=== PATIENT | female | born 1985 | race Caucasian/White ===

== ENCOUNTER 2021-12-14 15:59 | Emergency (ER) | payer OTHER ==
--- OUTSIDE RECORDS SUMMARY | 2021-12-14 16:04 | XMS REPORT | Continuity of Care Document ---
:1985 Author Organization [facility] t Address [address] [place] [address] Care Team Providers Name Role Phone Jeff Briones Christel Primary Care Physician BREEZY AUGUSTINE Attending Clinician Unavailable Breezy Augustine MD Attending Clinician GC_TRACYHASWATI_Anselmo_G Attending Clinician Unavailable GC_MARGARET_Anselmo_G Admitting Clinician Unavailable Payers Payer Name Policy Type Policy Number Effective Date Expiration Date S ource MEDICAID [place] [id number] 2021 00:00:00 [place] [id number] Problems This patient has no known problems. Allergies, Adverse Reactions, Alerts Allergy Allergy Status Severity Reaction(s) Onset Inactive Treating Comm ents Source Name Type Date Date Clinician NO KNOWN Drug Active Univers ALLERGIE Class ity of S [facility] Social History Social Habit Start Date Stop Date Quantity Comments Source Exposure to 2021-11-29 2021-12-09 Not sure [facility] SARS-CoV-2 (event) 00:00:00 11:29:00 Medica l Branch Sex Ass[birth year] [facility] 00:00:00 00:00:00 Medical Branch Smoking Status Start Date Stop Date Source Tobacco smoking consumption Univ [facility] Medical unknown Branch Medications This patient has no known medications. Vital Signs Vital Name Observation Time Observation Value Comments Source Systolic blood 2021-12-09 19:00:00 112 mm[Hg] Univer sity of pressure [facility] Diastolic blood 2021-12-09 19:00:00 81 mm[Hg] [facility] pressure [facility] Heart rate 2021-12-09 19:00:00 55 /min [facility] Respiratory rate 2021-12-09 19:00:00 14 /min [facility] Oxygen saturation in 2021-12-09 19:00:00 100 /min [facility] Arterial blood by [facility] Pulse oximetry Branch Body temperature 2021-12-09 16:30:00 37.06 Anca [facility] Body height 2021-12-09 16:30:00 170.2 cm [facility] Body weight 2021-12-09 16:30:00 79.379 kg [facility] BMI 2021-12-09 16:30:00 27.41 kg/m2 [facility] Procedures Procedure Date / Time Performing Clinician Source Performed US FIRST 2021-12-09 18:17:07 Breezy Augustine [facility] TRIMESTER LESS THAN 14 Medical B ranch WEEKS WITH TRANSVAGINAL ABORH CONFIRMATION (LAB 2021-12-09 17:19:00 Breezy Augustine [facility] ONLY) [facility] HB ABO GROUPING 2021-12-09 17:00:00 Breezy Augustine [facility] COMP. METABOLIC PANEL 2021-12-09 16:52:00 Breezy Augustine [facility] ([id number]) [facility] TOTAL BETA HCG ASSAY 2021-12-09 16:52:00 Breezy Augustine [facility] CBC WITH DIFF 2021-12-09 16:52:00 Breezy Augustine [facility] URINALYSIS 2021-12-09 16:52:00 Breezy Augustine [facility] NOTICE OF PRIVACY 2021-12-09 16:20:07 Doctor Unassigned, No [facility] PRACTICES Name Medical Branch Encounters Start End Encounter Admission Attending Care Care Encounter Source Date/Time Date/Time Type Type Clinicians Facility Department ID 2021-12-09 2021-12-09 Emergency X TARA AUGUSTINE ERT [id number] [facility] 11:30:00 14:17:00 BREEZY levine of [facility] 2021-12-09 2021-12-09 Emergency Vasut, [facility] [id number] [facility] 11:30:00 14:17:00 Breezy TOMLIN [id number] i Negro [id number] [facility] [id number] [facility] 084 Branch 2021-12-02 2021-12-02 Outpatient GC_SWHAOMC_ PRIV PRIV [id number] [facility] 00:00:00 00:00:00 Miguel [id number] [facility] 2021-12-01 2021-12-01 Outpatient GC_SWHAOMC_ PRIV PRIV [id number] [facility] 00:00:00 00:00:00 Anselmo_Cleve [id number] [facility] Results Test Description Test Time Test Comments Results Result Comments Source ABORH Confirmation (Lab Only) 2021-12-09 17:53:25 Test Item Value Reference Range Interpretation Comme nts ABO & RH (test code = 20) B Positive Pe rformed at [facility] Laboratory Services - ADC Blood [address] [place] [address]Hase Free: [phone] A No. [id number] [facility] [id number] 17:50:53 Test Item Value Reference Range Interpretation Comments BETA HCG (test See_Comment [Automated m essage] code = The system ic h [id number]) generated this result transmit nena reference range : Non- fe male and male patien ts: <5 mIU/mL. The reference range was not used to interpret this result as normal/abnormal . MARIA G (test code Gestational Age ? ? = MARIA G) ?Range (mIU/mL) 1-10 ?Weeks ?[id number] Weeks ?11118-61441283-88 Weeks ?5720-37340179-54 Weeks ?[id number] Biotin has been reported to cause a negative bias, interpret results relative to patient's use of biotin. [facility] Screen - ONCE [id number] 17:49:55 Test Item Value Reference Range Interpretation Comments ABO & RH (test code B Positive Performe d at [facility] = 20) Laboratory Serv [facility] Blood [facility]1 [address] [place] [address] Free: [phone] A No. [id number] IAT (test code = Negative Performed a t [facility] 1185) Laboratory Serv [facility] [address] [place], [place] [address]Toll Free: [phone] A No. [id number] [facility] MET[facility]OLIC PANEL ([id number])2021-12-09 17:36:25 Test Item Value Reference Range Interpretation Comments NA (test code = 135 mmol/L 135-145 5277028352) K (test code = 4.4 mmol/L 3.5-5 7920668566) CL (test code = 105 mmol/L 98-108 4638142406) CO2 TOTAL (test code = 20 mmol/L 23-31 L 4491247353) AGAP (test code = 2-16 8836610383) BUN (test code = 13 mg/dL 7-23 8281126029) GLUCOSE (test code = 86 mg/dL 70-110 2599478582) CREATININE (test code = 0.57 mg/dL 0.5-1.04 7308040836) TOTAL BILI (test code = 0.9 mg/dL 0.1-1.1 6737525505) CALCIUM (test code = 9.7 mg/dL 8.6-10.6 8327599708) T PROTEIN (test code = 7.1 g/dL 6.3-8.2 4488121159) ALBUMIN (test code = 4.3 g/dL 3.5-5 4903953598) ALK PHOS (test code = 59 U/L 34-122 8846896272) ALTv (test code = 134 U/L 5-35 H 1742-6) AST(SGOT) (test code = 98 U/L 13-40 H 8212143715) eGFR (test code = mL/min/1.73m2 9498820620) MARIA G (test code = MARIA G) Association of Glomerular Filtration Rate (GFR) and Staging of Kidney Disease* + --+ --+ ------+| GFR (mL/min/1.73 m2) ?| With Kidney Damage ?| ?Without Kidney Damage+ --------+ --------+ +| ?>90 ?| ?Stage one ?| ? Normal ?+ ---+ ---+ -------+| ?60-89 ?| ?Stage two ?| ? Decreased GFR ? + --+ --+ ------+| ?30-59 ?| ?Stage three ?| ? Stage three ? + --+ --+ ------+| ?15-29 ?| ?Stage four ? | ? Stage four ?+ ---+ ---+ -------+| ?<15 (or dialysis) ? ?| ?Stage five ? | ? Stage five ?+ ---+ ---+ -------+ *Each stage assumes the associated GFR level has been in effect for at least three months. ?Stages 1 to 5, with or without kidney disease, indicate chronic kidney disease. Notes: Determination of stages one and two (with eGFR >59mL/min/1.73 m2) requires estimation of kidney damage for at least three months as defined by structural or functional abnormalities of the kidney, manifested by either:Pathological abnormalities or Markers of kidney damage (including abnormalities in the composition of the blood or urine or abnormalities in imaging tests). Lab Interpretation Abnormal (test code = 16261-1) [facility] WITH [id number] 17:17:39 Test Item Value Reference Range Interpretation Comments WBC (test code = See_Comment [Automated 6192-2) message] The sy stem which generated this result transmitted reference range : 4.30 - 11.10 10*3/?L. The reference range was not used to interpret this result as normal/abnormal . RBC (test code = See_Comment [Automated 321-5) message] The sy stem which generated this result transmitted reference range : 3.93 - 5.25 10*6/?L. The reference range was not used to interpret this result as normal/abnormal . HGB (test code = 12.1 g/dL 11.6-15 718-7) HCT (test code = 35.6 % 35.7-45.2 L 4544-3) MCV (test code = 86.4 fL 80.6-95.5 787-2) MCH (test code = 29.4 pg 25.9-32.8 785-6) MCHC (test code = 34.0 g/dL 31.6-35.1 786-4) RDW-SD (test code = 40.3 fL 39-49.9 85526-2) RDW-CV (test code = 12.9 % 12-15.5 788-0) PLT (test code = See_Comment [Automated 777-3) message] The sy stem which generated this result transmitted reference range : 166 - 358 10*3/ ?L. The reference r matt was not used to interpret this result as normal/abnormal . MPV (test code = 10.9 fL 9.5-12.9 69541-0) NRBC/100 WBC (test See_Comment [Automat ed code = 5484276409) message] The system which generated this result transmitted reference range : 0.0 - 10.0 /100 WBCs. The refer ence range was not u sed to interpret th is result as normal/abnormal . NRBC x10^3 (test code See_Comment [Auto mated = 9281604225) message] The s ystem which generated this result transmitted reference range : 10*3/?L. The reference range was not used to interpret this result as normal/abnormal . GRAN MAT (NEUT) % 69.6 % (test code = 770-8) IMM GRAN % (test code 0.30 % = 0515840548) LYMPH % (test code = 20.7 % 736-9) MONO % (test code = 7.9 % 5905-5) EOS % (test code = 1.2 % 713-8) BASO % (test code = 0.3 % 706-2) GRAN MAT x10^3(ANC) 4.49 10*3/uL 1.88-7.09 (test code = 3015428532) IMM GRAN x10^3 (test 0-0.06 code = 4953721527) LYMPH x10^3 (test code 1.34 10*3/uL 1.32-3.29 = 731-0) MONO x10^3 (test code 0.51 10*3/uL 0.33-0.92 = 742-7) EOS x10^3 (test code = 0.08 10*3/uL 0.03-0.39 711-2) BASO x10^3 (test code 0.01-0.07 = 704-7) Lab Interpretation Abnormal (test code = 16320-2) [facility]"
[2021-12-14 16:31] LABS: Urine Blood Negative (Negative); Urine Glucose Negative (Negative); Urine Protein Negative (Negative); Urine Specific Gravity >=1.030 (1.005-1.030); Urine pH 6.5 (5.0-7.0)
[2021-12-14 16:47] LABS: Urine Mucus Slight /HPF (None Seen); Urine RBC <5 /HPF (None Seen)
[2021-12-14 17:25] LABS: Lymphocytes % 32.5 % (15.3-44.8); MPV 8.7 fL (7.6-11.3); RBC Red Blood Cell Count 3.96 M/uL (3.86-4.86)
--- NOTE | 2021-12-14 18:03 | RAD REPORT ---
EXAM DESCRIPTION: US - Transvaginal OB - 12/14/2021 5:52 pm CLINICAL HISTORY: with vaginal bleeding COMPARISON: None. FINDINGS: The uterus measures 10 x 4 x 6 centimeters. Gestational sac is present within the endometrium. Within this is a pole crown rump length 7.8 millimeters. Cardiac activity 129 beats per minute 7.5 centimeter right ovarian cyst. Blood flow is present to the right ovary. Left ovary normal in siz e and echotexture The right and left adnexa unremarkable No significant free fluid IMPRESSION: Single live into with an estimated gestational age 6 weeks 5 days AIDEN 08/05/19 23 7.5 centimeter right ovarian cyst
[2021-12-14 18:10] LABS: Potassium 3.5 mmol/L (3.5-5.1)
--- NOTE | 2021-12-14 18:24 | ER ---
Nurse's Notes [facility] Name: Sommer Aguilar Age: 36 yrs Sex: Female : 1985 Arrival Date: 12/14/2021 Time: 16:03 Bed 16 Private MD: Diagnosis: Threatened Presentation: 12/14 16:11 Chief complaint: Patient states: approximately 7 weeks , has not seen OB but vg1 has an appt on December 22. States light pink/red blood with "horrible" cramps that began today; denies clots or N/V. Coronavirus screen: Vaccine status: Patient reports receiving the 2nd dose of the covid vaccine. Client denies travel out of the [place] in the last 14 days. Ebola Screen: Patient negative for fever greater than or equal to 101.5 degrees Fahrenheit, and additional compatible Ebola Virus Disease symptoms Patient denies exposure to infectious person. Initial Sepsis Screen: Does the patient meet any 2 criteria? No. Patient's initial sepsis screen is negative. Does the patient have a suspected source of infection? No. Patient's initial sepsis screen is negative. Risk Assessment: Do you want to hurt yourself or someone else? Patient reports no desire to harm self or others. Onset of symptoms was December 14, 2021. 16:11 Method Of Arrival: Ambulatory [facility] 16:11 Acuity: YOUSUF 3 vg1 Triage Assessment: 16:13 General: Appears in no apparent distress. uncomfortable, Behavior is calm, cooperative. vg1 Pain: Complains of pain in right lower quadrant and left lower quadrant. : Reports vaginal bleeding that is bright red, light flow. 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 - Social history:: Smoking status: Reported history of juuling and/or vaping. - Family history:: not pertinent. - Hospitalizations: : No recent hospitalization is reported. Screenin:00 Abuse screen: Denies threats or abuse. Nutritional screening: No deficits noted. tw2 Tuberculosis screening: No symptoms or risk factors identified. Fall Risk None identified. Assessment: 17:11 Reassessment: Patient appears in no apparent distress at this time. No changes from tw2 previously documented assessment. Patient and/or family updated on plan of care and expected duration. Pain level reassessed. Patient is alert, oriented x 3, equal unlabored respirations, skin warm/dry/pink. 17:19 Reassessment: US at bedside at this time. tw2 17:41 Reassessment: US remains at bedside at this time. tw2 18:15 Reassessment: Patient appears in no apparent distress at this time. No changes from tw2 previously documented assessment. Patient and/or family updated on plan of care and expected duration. Pain level reassessed. Patient is alert, oriented x 3, equal unlabored respirations, skin warm/dry/pink. 18:26 Reassessment: provider at bedside with results at this time. tw2 18:45 Reassessment: Patient appears in no apparent distress at this time. No changes from tw2 previously documented assessment. Patient and/or family updated on plan of care and expected duration. Pain level reassessed. Patient is alert, oriented x 3, equal unlabored respirations, skin warm/dry/pink. Vital Signs: 16:11 BP 115 / 75; Pulse 65; Resp 15; Temp 98.2; Pulse Ox 100% ; Weight 81.65 kg; Height 5 vg1 ft. 7 in. (170.18 cm); Pain 6/10; 18:14 BP 117 / 84; Pulse 56; Resp 17; Pulse Ox 100% on R/A; tw2 16:11 Body Mass Index 28.19 (81.65 kg, 170.18 cm) vg1 ED Course: 16:03 Patient arrived in ED. rg4 16:11 Heladio Tang MD is Attending Physician. rn 16:11 Placed in gown. Bed in low position. Pulse ox on. NIBP on. tw2 16:13 Triage completed. vg1 16:13 Arm band placed on. vg1 16:23 Maritza Lee RN is Primary Nurse. tw2 16:30 Urine Microscopic Only Sent. tw2 16:59 Missed attempt(s): 24 gauge in left hand. Bleeding controlled, band aid applied, tw2 catheter tip intact. Missed attempt(s): 24 gauge in right antecubital area. charge nurse Clara,CHULA notified of need for IV and blood word. Bleeding controlled, band aid applied, catheter tip intact. 17:17 Inserted saline lock: 22 gauge in right antecubital area, using aseptic technique. tw2 ,using aseptic technique. by ClaraRN using US Blood collected. 17:54 US Transvaginal Ob In Process Unspecified. EDMS 18:44 No provider procedures requiring assistance completed. IV discontinued, intact, tw2 bleeding controlled, No redness/swelling at site. Pressure dressing applied. Administered Medications: No medications were administered Medication: 17:00 VIS not applicable for this client. tw2 Outcome: 18:23 Discharge ordered by . rn 18:44 Discharged to home ambulatory, with significant other. tw2 18:44 Condition: stable 18:44 Discharge instructions given to patient, significant other, Instructed on discharge instructions, follow up and referral plans. medication usage, Demonstrated understanding of instructions, follow-up care, medications, Prescriptions given X 1. 18:45 Patient left the ED. tw2 Signatures: Dispatcher [employer] EDMS Heladio Tang MD MD rn Wise, Tara RN RN tw2 Jenny Peterson Victoria RN RN vg1
--- NOTE | 2021-12-14 18:24 | EDPHYS ---
Physician Documentation [facility] Name: Sommer Aguilar Age: 36 yrs Sex: Female : 1985 Arrival Date: 12/14/2021 Time: 16:03 Bed 16 Private MD: ED Physician Heladio Tang HPI: 12/14 17:32 This 36 yrs old Female presents to ER via Ambulatory with complaints of Vaginal rn Bleeding, + Preg <12wks, Abdominal Cramping. 17:32 The patient presents to the emergency department with abdominal pain, that started rn yesterday, vaginal bleeding, that is light, with no clots. The estimated gestational age is 7 weeks. course: Leakage of Fluid: none appreciated, Ultrasound: the patient had an ultrasound, Risk/complications: previous complications- miscarriages. Associated signs and symptoms: Pertinent positives: abdominal pain, vaginal bleeding, Pertinent negatives: chest pain, fever, ruptured membranes, vaginal discharge. The patient has experienced similar episodes in the past. The patient has been recently seen by a physician:. Pt reports vaginal bleeding, light, no trauma, + lower abd cramping, seen recently at [place] for another episode of vaginal bleeding, told RH+, and u/s normal. . 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 - Social history:: Smoking status: Reported history of juuling and/or vaping. - Family history:: not pertinent. - Hospitalizations: : No recent hospitalization is reported. ROS: 17:32 Constitutional: Negative for fever, chills, and weight loss, Eyes: Negative for injury, rn pain, redness, and discharge, Neck: Negative for injury, pain, and swelling, Cardiovascular: Negative for chest pain, palpitations, and edema, Respiratory: Negative for shortness of breath, cough, wheezing, and pleuritic chest pain, Abdomen/GI: Negative for nausea, vomiting, diarrhea, and constipation, Back: Negative for injury and pain, : + vaginal bleeding MS/Extremity: Negative for injury and deformity, Skin: Negative for injury, rash, and discoloration, Neuro: Negative for headache, weakness, numbness, tingling, and seizure. Exam: 17:32 Constitutional: This is a well developed, well nourished patient who is awake, alert, rn and in no acute distress. Head/Face: Normocephalic, atraumatic. Cardiovascular: Regular rate and rhythm. No pulse deficits. Respiratory: No increased work of breathing, no retractions or nasal flaring. Abdomen/GI: soft, no focal abd tenderness or distension Skin: Warm, dry MS/ Extremity: Pulses equal, no cyanosis. Neuro: Awake and alert, GCS 15 Vital Signs: 16:11 BP 115 / 75; Pulse 65; Resp 15; Temp 98.2; Pulse Ox 100% ; Weight 81.65 kg; Height 5 vg1 ft. 7 in. (170.18 cm); Pain 6/10; 18:14 BP 117 / 84; Pulse 56; Resp 17; Pulse Ox 100% on R/A; tw2 16:11 Body Mass Index 28.19 (81.65 kg, 170.18 cm) vg1 MDM: 16:11 Patient medically screened. rn 18:18 Differential diagnosis: threatened Ab. Data reviewed: vital signs, nurses notes, labor delivery specialist test result(s), radiologic studies, ultrasound, and as a result, I will discharge patient. Counseling: I had a detailed discussion with the patient and/or guardian regarding: the historical points, exam findings, and any diagnostic results supporting the discharge/admit diagnosis, lab results, the need for outpatient follow up, to return to the emergency department if symptoms worsen or persist or if there are any questions or concerns that arise at home. Special discussion: I discussed with the patient/guardian in detail that at this point there is no indication for admission to the hospital. It is understood, however, that if the symptoms persist or worsen the patient needs to return immediately for re-evaluation. Based on the history and exam findings, there is no indication for further emergent testing or inpatient evaluation. I discussed with the patient/guardian the need to see the OB Gyne specialist for further evaluation of the symptoms. 12/14 16:12 Order name: Abo/rh Typing; Complete Time: 18:04 rn 12/14 16:12 Order name: Basic Metabolic Panel; Complete Time: 18:16 rn 12/14 16:12 Order name: CBC with Diff; Complete Time: 18:04 rn 12/14 16:12 Order name: Quantitative Hcg; Complete Time: 18:16 rn 12/14 16:12 Order name: Urine Microscopic Only; Complete Time: 18:04 rn 12/14 16:32 Order name: Urine Dipstick-Ancillary; Complete Time: 16:35 EDMS 12/14 16:12 Order name: US Transvaginal Ob; Complete Time: 18:16 rn 12/14 16:12 Order name: IV Saline Lock; Complete Time: 17:17 rn 12/14 16:12 Order name: Labs collected and sent; Complete Time: 17:17 rn 12/14 16:12 Order name: Urine Dipstick-Ancillary (obtain specimen); Complete Time: 16:30 rn Administered Medications: No medications were administered Disposition Summary: 12/14/21 18:23 Discharge Ordered Location: Home rn Problem: new rn Symptoms: have improved rn Condition: Stable rn Diagnosis - Threatened rn Followup: rn - With: Private Physician - When: As needed - Reason: Recheck today's complaints, Re-evaluation by your physician Discharge Instructions: - Discharge Summary Sheet rn - Threatened Miscarriage rn - Vaginal Bleeding During , First Trimester rn Forms: - Medication Reconciliation Form rn - Thank You Letter rn - 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
[2021-12-14 19:47] VITALS: TEMP 98.2; O2SAT 100
[2021-12-14 19:49] VITALS: BP 117/84
== END 2021-12-14 18:45 | disposition home or self-care (01) ==
LOC: ER 15:59
DX: O20.0 Threatened abortion (principal)
CPT/HCPCS: 36415; 76817; 80048; 81003; 81015; 84702; 85025; 86900; 86901; 99284